=== PATIENT | female | born 1940 | race Caucasian/White ===

== ENCOUNTER 2017-12-15 11:27 | Outpatient (CLI) | payer OTHER ==
[~2017-12-15 11:27] MED LIST: AMOX TR-K CLV 81 TAB; AMOX TR-K CLV 81 TAB PO; AVANDIA4 MG; GLUCOVANCE 5/501 TAB
== END 2017-12-15 11:30 | disposition home or self-care (01) ==
LOC: LAB 11:27
DX: I10 Essential (primary) hypertension (principal); E11.9 Type 2 diabetes mellitus without complications; E03.8 Other specified hypothyroidism; E78.2 Mixed hyperlipidemia

== ENCOUNTER → 2018-09-17 08:04 | Outpatient (CLI) | payer OTHER ==
[~2018-09-17 08:04] MED LIST changes: +HYDROCHLOROTH12.5 MG PO
== END | disposition home or self-care (01) ==
LOC: LAB 08:04
DX: I10 Essential (primary) hypertension (principal); E11.9 Type 2 diabetes mellitus without complications; E03.8 Other specified hypothyroidism; E78.2 Mixed hyperlipidemia

== ENCOUNTER 2018-09-21 16:59 | Emergency (ER) | payer OTHER ==
[~2018-09-21] VITALS: Ht 165.1 cm; Wt 59.0 kg
[~2018-09-21 16:59] MED LIST changes: -HYDROCHLOROTH12.5 MG PO
[2018-09-21] MEDS ORDERED: HYDROCHLOROTH12.5 MG PO (17:56)
== END 2018-09-21 18:05 | disposition home or self-care (01) ==
LOC: ER 16:59
DX: M25.471 Effusion, right ankle (principal); M25.472 Effusion, left ankle

== ENCOUNTER 2018-12-03 12:08 | Outpatient (CLI) | payer OTHER ==
[~2018-12-03 12:08] MED LIST changes: +HYDROCHLOROTH12.5 MG PO
== END 2018-12-03 12:11 | disposition home or self-care (01) ==
LOC: MAMO-SONO 12:08
DX: Z12.31 Encounter for screening mammogram for malignant neoplasm of breast (principal); N62 Hypertrophy of breast

== ENCOUNTER 2018-12-18 12:27 | Outpatient (CLI) | payer OTHER | END 2018-12-18 12:31 | disposition home or self-care (01) | LOC: SONOGRAMA 12:27 | DX: C50.412 Malignant neoplasm of upper-outer quadrant of left female breast (principal); N60.12 Diffuse cystic mastopathy of left breast; N60.11 Diffuse cystic mastopathy of right breast ==

== ENCOUNTER → 2018-12-31 | Outpatient (CLI) | payer OTHER | END | disposition home or self-care (01) | LOC: NUCLEAR 07:00 | DX: C50.412 Malignant neoplasm of upper-outer quadrant of left female breast (principal) | CPT/HCPCS: 78815; A9552 ==

== ENCOUNTER → 2019-06-22 08:51 | Outpatient (CLI) | payer OTHER | END | disposition home or self-care (01) | LOC: LAB 08:51 | DX: I10 Essential (primary) hypertension (principal); E11.9 Type 2 diabetes mellitus without complications; E03.8 Other specified hypothyroidism; E78.2 Mixed hyperlipidemia; K72.00 Acute and subacute hepatic failure without coma ==